=== PATIENT | female | born 1995 | race Caucasian/White ===

== ENCOUNTER 2016-08-06 09:22 | Emergency (ER) | payer OTHER | END 2016-08-06 10:15 | disposition home or self-care (01) | LOC: ER 09:22 | DX: O9A.213 Injury, poisoning and certain other consequences of external causes complicating pregnancy, third trimester (principal); S30.0XXA Contusion of lower back and pelvis, initial encounter; W10.9XXA Fall (on) (from) unspecified stairs and steps, initial encounter; Z3A.33 33 weeks gestation of pregnancy ==